=== PATIENT | female | born 1950 | race Two or more races ===

== ENCOUNTER 2016-12-11 06:44 | Outpatient (CLI) | payer OTHER | END 2016-12-11 06:51 | disposition home or self-care (01) | LOC: NUCLEAR 06:44 | DX: I50.42 Chronic combined systolic (congestive) and diastolic (congestive) heart failure (principal); I25.10 Atherosclerotic heart disease of native coronary artery without angina pectoris; I34.0 Nonrheumatic mitral (valve) insufficiency ==

== ENCOUNTER 2017-05-28 07:18 | Outpatient (CLI) | payer OTHER | END 2017-05-28 07:33 | disposition home or self-care (01) | LOC: NUCLEAR 07:18 | DX: I50.42 Chronic combined systolic (congestive) and diastolic (congestive) heart failure (principal); I34.1 Nonrheumatic mitral (valve) prolapse ==